=== PATIENT | male | born 1955 | race Hispanic/Latino ===

== ENCOUNTER → 2019-11-29 | Outpatient (CLI) | payer MEDICARE, BC ==
[~2019-11-29] MED LIST: CETI10TA57 PO; HYDR-4064 PO; TRAZ-187 PO
== END | disposition home or self-care (01) ==
LOC: OIH 08:51
PROVIDERS: ATTEND Neurological Surgery
DX: S33.140D Subluxation of L4/L5 lumbar vertebra, subsequent encounter (principal); M43.26 Fusion of spine, lumbar region; Z98.1 Arthrodesis status; X58.XXXD Exposure to other specified factors, subsequent encounter
CPT/HCPCS: 72100

== ENCOUNTER → 2019-12-02 | Outpatient (CLI) | payer MEDICARE, BC | END | disposition home or self-care (01) | LOC: RAH 12:08 | PROVIDERS: ATTEND Physical Medicine & Rehabilitation | DX: M43.17 Spondylolisthesis, lumbosacral region (principal) | CPT/HCPCS: 72110 ==

== ENCOUNTER → 2019-12-22 | Outpatient (CLI) | payer MEDICARE ==
[~2019-12-22] MED LIST changes: +IOHEXOL-350 75 ML VIAL IV ONE
== END | disposition home or self-care (01) ==
LOC: RAH 10:29
PROVIDERS: ATTEND Physical Medicine & Rehabilitation
DX: M47.816 Spondylosis without myelopathy or radiculopathy, lumbar region (principal); K57.30 Diverticulosis of large intestine without perforation or abscess without bleeding; Z98.890 Other specified postprocedural states
CPT/HCPCS: 72133; Q9967